=== PATIENT | female | born 1990 | race Caucasian/White ===

== ENCOUNTER 2017-11-24 21:17 | Emergency (ER) | payer MEDICAID ==
[~2017-11-24] VITALS: Ht 152.4 cm; Wt 85.0 kg
== END 2017-11-24 21:34 | disposition left against medical advice (07) ==
LOC: ED 21:28
DX: R51 Headache (principal); Z53.21 Procedure and treatment not carried out due to patient leaving prior to being seen by health care provider

== ENCOUNTER 2017-11-24 21:43 | Outpatient (CLI) | payer MEDICAID ==
[~2017-11-24] VITALS: Ht 152.4 cm; Wt 85.4 kg
[2017-11-24 21:40] VITALS: BP 124/82
[2017-11-24 21:58] LABS: MICROSCOPIC NOT IND
[2017-11-24] MEDS ORDERED: ACETAMINOPHEN 325 MG TABLET ONE (23:03)
[2017-11-24] MEDS ORDERED: ACETAMINOPHEN 325 MG TABLET PO PRN (23:30)
== END 2017-11-24 23:15 | disposition home or self-care (01) ==
LOC: LDOP 21:43
PROVIDERS: ATTEND Obstetrics & Gynecology Female Pelvic Medicine and Reconstructive Surgery
DX: O26.893 Other specified pregnancy related conditions, third trimester (principal); R51 Headache; Z3A.36 36 weeks gestation of pregnancy
CPT/HCPCS: 59025; 81003; 87086; 99201; 99211; G0463

== ENCOUNTER 2017-12-08 18:46 | Outpatient (CLI) | payer MEDICAID, OTHER ==
[~2017-12-08] VITALS: Ht 152.4 cm; Wt 83.1 kg
[2017-12-12] MEDS ORDERED: IBUP-1222 PO (07:44)
== END 2017-12-08 20:37 | disposition home or self-care (01) ==
LOC: LDOP 18:46
PROVIDERS: ATTEND Obstetrics & Gynecology Female Pelvic Medicine and Reconstructive Surgery
DX: O62.9 Abnormality of forces of labor, unspecified (principal); Z3A.38 38 weeks gestation of pregnancy
CPT/HCPCS: 59025; 99211; G0463